=== PATIENT | female | born 1960 | race Caucasian/White ===

== ENCOUNTER 2019-11-12 08:13 | Outpatient (CLI) | payer OTHER, SELFPAY ==
[2019-11-12 08:58] LABS: Basophils # 0.1 10^3/uL (0.0-0.1); Basophils % 0.9 %; Eosinophils # 0.2 10^3/uL (0.0-0.8); Eosinophils % 1.6 %; Hematocrit 44.5 % (37.0-47.0); Hemoglobin 13.8 g/dL (11.5-15.3); Lymphocytes # 1.2 10^3/uL (0.8-4.8); Lymphocytes % 11.3 %; Mean Corpuscular Hemoglobin 25.2 pg (28.0-34.0); Mean Corpuscular Volume 81.4 fL (81-99); Mean Platelet Volume 8.1 fL (7.4-10.4); Monocytes # 1.1 10^3/uL (0.2-0.9); Monocytes % 10.7 %; Neutrophils # 7.9 10^3/uL (1.8-7.7); Neutrophils % 74.9 %; Nucleated Red Blood Cells % 0 %; Platelet Count 501 10^3/cmm (130-400); Red Blood Count 5.47 10^6/uL (4.1-5.3); Red Cell Distribution Width 15.8 % (12.1-15.1); White Blood Count 10.6 10^3/uL (4.0-10.0)
[2019-11-12 09:19] LABS: Ferritin 103 ng/mL (15-150); Iron 35 ug/dL (37-145); Percent Saturation 14.5 % (20-50); Total Iron Binding Capacity 240 mcg/dl; Unsaturated Iron Binding 205 ug/dL (112-347)
--- NOTE | 2019-11-12 13:34 | ONC FU_ITS ---
Dr. Gerardo follow up note Patient: Jolene Sandra Unit #: [id number]: 1960 Dicatated By: Aurora Gerardo M.D.Date of Visit:Nov 12, 2019 Onc Med Follow-up/Prog Note History of Present Illness: Mrs. Jolene Sandra, is a 58-year-old female with a history of generalized weakness and fatigue , labs done on 08/12/2019 showed white blood count 9.9 hemoglobin 12.8 crit 41.7 and MCV 75.7 platelets 722,000 with a normal differential. As per patient in the past she was told about elevated blood cells but not sure which one was. Denies any headaches blurred vision double vision denies any abdominal fullness. As per patient She has history CVA involving the right side now resolved but not mentioned in the medical record She is a chronic smoker and still smoke about a pack a day and has history of hypoxemic respiratory failure. Patient denies any night sweats, weight loss, no recurrent fever or peripheral lymphadenopathy Came for follow-up, denies any specific complaints, no nausea vomiting diarrhea no fever no chills no melena hematochezia, no hemoptysis or hematemesis no jaundice, no shortness of breath or palpitation. Medications: Aspirin 1 Tablet (of 81 mg) Oral daily, Ferrous Sulfate 1 Tablet (of 325 (65 fe) mg) Oral daily, Mirtazapine 1 Tablet (of 45 mg) Oral at bedtime, Multivitamin Adult 1 Tablet Tablet, chewable Oral daily, Trelegy Ellipta 1 Puff(s) (of 100-62.5-25 mcg/inh) Aerosol Powder, Breath Activated Inhalation daily Allergies: Penicillins Review of Systems: Constitutional - Appetite is good and weight is stable. No fever, chills, hot flashes, or night sweats. Energy level is poor, ENMT - No sinus congestion/drainage. No mouth sores. No sore throat or difficulty swallowing, Hematologic/Lymphatic - Positive for easy bruising, Respiratory - Negative for shortness of breath, Positive for cough. No pleuritic pain or hemoptysis, Cardiovascular - No angina pain. No palpitations, Gastrointestinal - No nausea or vomiting. Positive for heartburn, no acid reflux. No diarrhea or constipation. No blood in the stool or black stools, Genitourinary (F) - No dysuria or hematuria. No urinary frequency. No urgency or incontinence, Musculoskeletal - Positive for joint pain, Neurologic - Pt reports hx of stroke and residual numbness, Psychiatric - Positive for anxiety and depression, Pt is not currently being treated. Vital Signs: Performed on Nov 12, 2019 13:17 Height - 62.00 in Weight - 86.4 lbs (HIGH) BSA - 1.34 sq.m BMI - 15.80 (LOW) Temperature - 97.9 F (LOW) Pulse - 93 /min Respiration - 20 /min BP - 146/83 mm(hg) (HIGH) O2 Sat - 97 % Pain - 5 Performance Status: 0 - Fully active, able to carry on all predisease activities without restrictions. (ECOG) Physical Examination: ENMT - No oral exudates, ulcers, masses, thrush or mucositis. Oropharynx clear. Tongue normal, Respiratory - Lungs are clear to auscultation without rhonchi or wheezing, Cardiovascular - Regular rate and rhythm of heart, Abdomen - Non-tender, non-distended, Good bowel sounds. No guarding or rebound tenderness. No pulsatile masses, Extremities - no edema. Lab/Imaging: Test performed on Sep 17, 2019 11:02 WBC 13.7 10 3/uL RBC 5.47 10 6/uL HGB 13.2 g/dL HCT 42.9 % MCV 78.4 fl MCH 24.1 pg MCHC 30.8 g/dl RDW 16.0 % Platelet Count 570 10 3/cmm MPV 7.9 fl Neutrophils 11.5 10 3/uL Lymphocytes 0.8 10 3/uL Monocytes 1.2 10 3/uL Eosinophils 0.1 10 3/uL Basophils 0.1 10 3/uL Neutrophil % 83.6 % Lymphocyte % 6.0 % Monocyte % 8.4 % Eosinophil % 0.7 % Basophils % 0.8 % Test performed on Aug 20, 2019 08:49 Ferritin 139.0 ng/ml Folate, Serum 5.1 ng/mL Iron 21 ug/dL Vitamin B12 384 pg/mL % Iron Saturation 8.1 % UIBC 238 ug/dL ESR (Sed Rate) 54 mm/hr Impression: Isolated mild thrombocytosis, etiology unclear could be due to iron deficiency or chronic inflammation versus myeloproliferative disorder but less likely Plan: Discussed with patient regarding her labs white blood count 10.6 hemoglobin 13.8 crit 44.5 platelets 501,000 , ferritin 103 iron 35 TIBC 240 Clinically, patient is doing well with no new signs symptoms. Follow-up lab shows normal hemoglobin and mild but improving isolated thrombocytosis. Patient was recommended to get GI evaluation done but patient is declining, knowing the risk versus benefit. Return to clinic in 3 months with CBC and iron studies Signed By: Aurora Gerardo M.D. <<Signature on File>>
== END 2019-11-12 08:14 | disposition home or self-care (01) ==
LOC: ONCMED 08:18
PROVIDERS: Family Provider Internal Medicine; PCP Internal Medicine; Visit Provider Internal Medicine Hematology & Oncology
DX: D47.3 Essential (hemorrhagic) thrombocythemia (principal); F17.210 Nicotine dependence, cigarettes, uncomplicated; Z79.82 Long term (current) use of aspirin; Z86.73 Personal history of transient ischemic attack (TIA), and cerebral infarction without residual deficits
CPT/HCPCS: 82728; 83540; 83550; 85025; G0463

== ENCOUNTER 2021-07-04 10:51 | Outpatient (CLI) | payer SELFPAY ==
--- NOTE | 2021-07-04 10:57 | CT_ITS ---
WS: [id number] CT scan of the chest without IV contrast, additional two-dimensional coronal and sagittal reconstruct ion was performed. 07/04/2021 Clinical Data: PULMONARY NODULE Comparison: PA and lateral chest, 06/21/2021. DLP: 419.[address] scans at [facility] use at least one of these dose optimization techniques: automated e xposure control; mA and/or kV adjustment per patient size (includes targeted exams where dose is matc hed to clinical indication); or iterative reconstruction. Findings: There is a pleural-based density in the lingula of the left upper lobe seen best on axial image 19 of 62 measuring 2.2 cm with irregular borders. This is suspicious for a cancer of the lung. There are b ilateral upper lobe cavities with an air-fluid level on the right. The right cavity is larger than th e left. There are interstitial changes throughout both lungs especially adjacent to the cavitary lesi ons. The heart size is normal with no pericardial effusion. There is coronary artery calcification. T he pulmonary arterial system and thoracic aorta demonstrate no abnormalities or dilatations. There is no axillary adenopathy. Bilateral hilar adenopathy is prominent. The trachea bifurcates normally int o the bronchi. The upper abdomen shows a low density lesion in the anterior aspect of the right lobe of liver measur ing 1.5 cm which may represent a cyst rather than a metastatic lesion. There is a fusion of the T3-4 disc interspace with a flexion deformity. CT/CT chest wo con [id number] Impression: 1. Pleural-based density in lingula of the left upper lobe on image 19 of 22 yanez spicious for cancer of the lung, recommend clinical follow-up and CT chest fol low-up in 1-2 months. 2. Extensive upper lobe cavitary changes possibly from chronic infectious disea se. 3. Diffuse changes of COPD.
== END 2021-07-04 10:52 | disposition home or self-care (01) ==
LOC: RADWPI 10:55
PROVIDERS: PCP Internal Medicine; Visit Provider Internal Medicine
DX: R91.1 Solitary pulmonary nodule (principal)
CPT/HCPCS: 71250

== ENCOUNTER 2021-08-29 13:41 | Outpatient (CLI) | payer SELFPAY ==
--- NOTE | 2021-08-29 13:45 | XR_ITS ---
WS: [id number] DEXA (DUAL ENERGY X-RAY ABSORPTIOMETRY) Bone mineral density was performed using a [employer] machine. HISTORY: POSTMENOPAUSAL COMPARISON: None available. Lumbar spine BMD (L1-L4): 0.626 g/cm2 T score: -4.6 Z score: -2.4 Total hip BMD: Left: 0.425 g/cm2. T score: -4.6 Z score: -3.0 Right: 0.466 g/cm2. T score: -4.3 Z score: -2.7 10 year probability of a major osteoporotic fracture is 37%. XR/XR DEXA axial skeleton* [id number] IMPRESSION: OSTEOPOROSIS based upon the WHO classification for females.
== END 2021-08-29 13:42 | disposition home or self-care (01) ==
PROVIDERS: PCP Internal Medicine; Visit Provider Internal Medicine
DX: Z78.0 Asymptomatic menopausal state (principal); M81.0 Age-related osteoporosis without current pathological fracture
CPT/HCPCS: 77080

== ENCOUNTER → 2021-09-08 11:08 | Outpatient (BNVA) | payer OTHER, SELFPAY | PROVIDERS: PCP Internal Medicine; Visit Provider Internal Medicine Pulmonary Disease | DX: J43.9 Emphysema, unspecified (principal); Z20.822 Contact with and (suspected) exposure to COVID-19 | CPT/HCPCS: 87635 ==

== ENCOUNTER 2021-09-12 07:55 | Day surgery (SDC) | payer SELFPAY ==
[2021-09-12] VITALS (8 sets, daily range): BP systolic 114–186; BP diastolic 76–104; PULSE 98–118; RESP 16–22; TEMP 36.5–37.1; O2SAT 87–98
--- NOTE | 2021-09-12 08:16 | ANES.PREANE2 ---
Pre-Anesthetic Assessment Pre-Anesthetic Assessment: Height/Weight: Height 1.57 m Weight 33.566 kg Proposed Procedure: Operation Date: 09/12/21 09:25 Proposed Procedures p [facility] [id number] R91.8(Not Applicable) - Ruel Cobb MD Was Beta Kaite taken within 24 hours: N/A Was Clonidine taken within 24 hours: N/A Social: Social History: Tobacco and No alcohol Exam: Pre-Anes Outpt Exam: alert, oriented x 3 and regular rate & rhythm Additional Exam Findings (including area of procedure): decreased BS and rhonchi, tachy but regular Airway: Submandibular: WNL Cervical ROM: WNL MP: 2 Dentition: False Pulmonary: Pulmonary: COPD and TADEO CV/HEM: CV/HEM: HTN GI: GI: GERD Metabolic: Comments: Cachectic Neuropsych: Neuropsych: Anxiety, Depression and TIA Anesthetic Plan: ASA status: 3 Anesthesia: General Risk of > 500 ml blood loss (7ml/kg in children): No PFSH Anesthesia PFSH: Family History Mother Diabetes Cancer skin Hypertension Brother Cancer esophagus Sister Cancer pancreatic Data Anesthesia Cardiac Studies: No Data to Display
[2021-09-12] MEDS: sodium chloride 0.9% 1,000 ML 30 ML IV (09:15)
--- NOTE | 2021-09-12 10:20 | W.PM.OPSUD ---
Surgery/Procedure H&P Update DATE OF PROCEDURE: September 12, 2021\ Ms. Jolene Sandra is a 60-year-old female with PMH hypertension, CVA 2015, anxiety and depression, chronic hypoxic respiratory failure secondary to bullous emphysema, severely underweight with BMI 14, referred by Dr. Cheatham for new Dx lung nodule seen on 07/04 CT Chest. She was treated with doxycycline and 7 days of p.o. prednisone but still complaining of denies fever, chills, night sweats, hemoptysis, dysphagia, pain on inspiration, Reports hoarseness x 3 months or more, chest congestion, productive cough with clear to grimaldo sputum, pain with swallowing, SOB on exertion, feeling tired all of the time. Current cigarette smoker, currently smokes approx 15 cigarettes/ day with 1ppd x 42 year Hx, started at age 18. Using Trelegy inhaler, working well for her. Has tried Symbicort in past but did not help her, has not tried any other inhalers previously. Reports breathing unchanged since last visit, using Trelegy on occasion, less often than daily as she has to pay out of pocket and it costs her too much. PET/CT 09/05/2021: Multiple bilateral pulmonary nodules and FDG positive thick-walled blebs consistent with malignancy. The dominant nodule in central left lower lobe measures 2.9 x 1.9 cm with an SUV 12.8. Other blebs and masses have thick castaneda with abnormal activity indicating malignancy. The right and left hilum demonstrate abnormal activity likely malignant - Scheduled for EBUS guided FNA C of hilar mass. Today patient is here for EBUS guided FNA C of hilar mass. Complained of dyspnea on exertion. History and physical examination most recently on 09/08/2021 -Plan for bronchoscopy/EBUSGuided FNA C of left hilar mass DATE H&P PERFORMED: 09/08/21 PLANNED PROCEDURE: Operation Date: 09/12/21 09:25 Proposed Procedures p [facility] [id number] R91.8(Not Applicable) - Ruel Cobb MD Related Problem List Diagnoses (1) Encounter for smoking cessation counseling: (2) Chronic bullous emphysema: (3) Mass of left lung: (4) Cavitating mass in left lower lung lobe:
[2021-09-12] MEDS: lidocaine 1% INJ 20 mL XX (10:56)
--- NOTE | 2021-09-12 11:51 | P.OP_ITS ---
Operative Report Date of procedure: Date of procedure: Date of procedure: September 12, 2021 Pre-op Diagnosis: Lung cancer Post-op diagnosis: same Ms. Jolene Sandra is a 60-year-old female with PMH hypertension, CVA 2015, anxiety and depression, chronic hypoxic respiratory failure secondary to bullous emphysema, severely underweight with BMI 14, referred by Dr. Cheatham for new Dx lung nodule seen on 07/04 CT Chest. She was treated with doxycycline and 7 days of p.o. prednisone but still complaining of denies fever, chills, night sweats, hemoptysis, dysphagia, pain on inspiration, Reports hoarseness x 3 months or more, chest congestion, productive cough with clear to grimaldo sputum, pain with swallowing, SOB on exertion, feeling tired all of the time. Current cigarette smoker, currently smokes approx 15 cigarettes/ day with 1ppd x 42 year Hx, started at age 18. Using Trelegy inhaler, working well for her. Has tried Symbicort in past but did not help her, has not tried any other inhalers previously. Reports breathing unchanged since last visit, using Trelegy on occasion, less often than daily as she has to pay out of pocket and it costs her too much. PET/CT 09/05/2021: Multiple bilateral pulmonary nodules and FDG positive thick-walled blebs consistent with malignancy. The dominant nodule in central left lower lobe measures 2.9 x 1.9 cm with an SUV 12.8. Other blebs and masses have thick castaneda with abnormal activity indicating malignancy. The right and left hilum demonstrate abnormal activity likely malignant - Scheduled for EBUS guided FNA C of hilar masses. Procedure: Name of the procedure: Bronchoscopy with inspection of the airway, bronchoalveolar lavage, endobronchial ultrasound-guided fine needle aspiration of left and right hilar mass and control of bleeding. Indication: Suspected lung cancer Anesthesia: General anesthesia. Local anesthesia: The lorne in the right and left mainstem bronchi were anesthetized with 1% lidocaine, 3 mL. Description of the procedure: The procedure was explained to the patient and the consent was obtained. The patient was brought to the OR. The patient underwent LMA placement for general anesthesia. Following induction of general anesthesia, the bronchoscope was advanced through the LMA. The lower trachea appeared to be normal. the lorne was sharp. The lorne, the right and left mainstem bronchi are anesthetized with 1% lidocaine. In a systematic manner bilateral bronchial tree was then examined. The bronchoscope was advanced into the Right mainstem bronchus. The right upper lobe revealed erythematous mucosa with mild purulent secretions. Bronchoscope could not be advanced into the anterior segment of the right upper lobe. The right middle lobe and right lower lobe endobronchial mucosa appeared edematous. There are no endobronchial lesions. The bronchoscope was then introduced into the left mainstem bronchus. The left upper lobe, lingula and left lower lobe bronchi were examined up to the third subsegmental level and no abnormalities were identified. The endobronchial ultrasound was introduced through the LMA. Left hilar mass was too close to vasculature and so did not attempt FNA C. Then the EBUS was placed it 10 R and FNA C were taken from right hilar mass Bronchoalveolar lavage was performed from the right upper lobe and left lingula. 60 mL of saline was instilled in both places, fluid return was 20 mL. The fluid was bloody. Samples: 1. Bronchoalveolar lavage specimen from right upper lobe was sent for micro biology cultures, fungal cultures, AFB staining. 2. Bronchoalveolar lavage specimen from left lingula was sent for microbiology cultures, fungal cultures, AFB staining. 3. The transbronchial needle aspiration from right hilar mass are sent for histopathology in formalin. 4. Another sample of transbronchial needle aspiration from right hilar mass was sent to microbiology in normal saline for bacterial cultures, fungal and AFB cultures Complications: There was no immediate complications Associated Problem List Diagnoses (1) Cavitating mass in left lower lung lobe: (2) Mass of left lung: (3) Cavitating mass in right upper lung lobe: (4) Chronic bullous emphysema:
--- NOTE | 2021-09-12 11:52 | XR_ITS ---
WS: [id number] CHEST XRAY TECHNIQUE: Portable chest. CLINICAL INFORMATION: POST EBUS COMPARISON: June 21, 2021 FINDINGS: Heart: Normal cardiac silhouette. Lungs: Hyperinflation. Advanced chronic emphysematous changes. Bulla formation in the right greater t torres left lung apices unchanged from June 21, 2021. No evidence of pneumothorax. Stable prominent nipple shadows. Bones: Normal visualized bony structures. XR/XR chest 1V portable [id number] IMPRESSION: 1. No pneumothorax post bronchoscopy with biopsy 2. Hyperinflation with advanced emphysematous changes similar in appearance to previous. 3. Bilateral upper lobe cavitation similar in appearance to May 2021. Im provement of the right upper lobe air-fluid level. 4. No new findings.
--- NOTE | 2021-09-12 13:17 | ANE.PACU2 ---
Inpatient post-anesthesia follow up: Airway intact: Yes Vital signs: Temperature 98.8 F Pulse Rate 108 Respiratory Rate 22 Blood Pressure 142/77 Pulse Oximetry 95 Oxygen Delivery Me thod Nasal Cannula Oxygen Flow Rate 3 Fraction of Inspir ed Oxygen Nausea and vomiting: No Pain level: 2 Mental status: Baseline
== END 2021-09-12 13:45 | disposition home or self-care (01) ==
PROVIDERS: PCP Internal Medicine; Visit Provider Internal Medicine Pulmonary Disease
PROC: BB4BZZZ Ultrasonography of Pleura (ICD-10-PCS; principal; 2021-09-12 09:15)
PROC: 0BJ08ZZ Inspection of Tracheobronchial Tree, Via Natural or Artificial Opening Endoscopic (ICD-10-PCS; CPT 31622; 2021-09-12 09:15)
DX: R91.8 Other nonspecific abnormal finding of lung field (principal); I10 Essential (primary) hypertension; K21.9 Gastro-esophageal reflux disease without esophagitis; F41.9 Anxiety disorder, unspecified; F32.9 Major depressive disorder, single episode, unspecified; Z86.73 Personal history of transient ischemic attack (TIA), and cerebral infarction without residual deficits; Z83.3 Family history of diabetes mellitus; Z82.49 Family history of ischemic heart disease and other diseases of the circulatory system; J43.8 Other emphysema
CPT/HCPCS: 31624; 31652; 71045; 80500; 87015; 87070; 87102; 87116; 87205; 87206; 87801; 88305; J2704; J7030

== ENCOUNTER 2023-06-13 14:08 | Observation (INO) | payer MEDICAID, SELFPAY ==
[2023-06-13 14:10] VITALS: BP 117/70; PULSE 104; RESP 22; O2SAT 87
--- NOTE | 2023-06-13 14:19 | XR_ITS ---
WS: [id number] Exam: XR chest 1V portable [id number] Date/Time of Exam: 06/13/2023 2:21 PM Reason For Exam: weakness Comparison 09/12/2021. The lungs are fully expanded. Extensive changes of fibrosis and honeycombing noted. 2 very large bleb s occupy the RIGHT and LEFT upper lobes unchanged in appearance. There appears to be a possible new 3 x 2 cm soft tissue mass in the mid LEFT lung. Heart size is normal. The mediastinum is normal in con tour. There is hyperinflation. Bony structures are intact. IMPRESSION: 1. Possible new 3 x 2 cm soft tissue mass in the mid LEFT lung. 2. Extensive changes of fibrosis and honeycombing throughout both lungs with large blebs occupying th e RIGHT and LEFT upper lobes. These changes appear to be progressive since the prior study. Recommendations: Nonemergent CT scan of the chest with contrast should be considered for further eval uation.
--- NOTE | 2023-06-13 14:20 | ECG_ITS ---
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 Measurements Intervals [place] Rate: 95 P: 83 HI: 111 QRS: 85 QRSD: 84 T: 83 QT: 375 QTc: 473 Interpretive Statements SINUS RHYTHM WITH SHORT HI INTERVAL RIGHT ATRIAL ENLARGEMENT [0.3mV P-WAVE] LEFT ATRIAL ENLARGEMENT [-0.15mV P-WAVE IN V1/V2] ST DEVIATION AND MODERATE T-WAVE ABNORMALITY, CONSIDER ANTEROLATERAL ISCHEMIA [-0.1+ mV T-WAVE IN V3-V6] ST DEVIATION AND MODERATE T-WAVE ABNORMALITY, CONSIDER INFERIOR ISCHEMIA [-0.1+ mV T-WAVE IN II/aVF] No previous ECG available for comparison Electronically Signed On 06-13-2023 19:25:56 CDT by Tomi Acosta M.D. [id number]
--- NOTE | 2023-06-13 14:34 | CTR_ITS ---
PROCEDURE INFORMATION: Exam: CTA Chest With Contrast Exam date and time: 06/13/2023 3:36 PM Age: 62 years old Clinical indication: Dyspnea; Prior surgery; Surgery date: 6+ months; Patient HX: HX of lung cancer; Additional info: Mass/ dyspnea TECHNIQUE: Imaging protocol: Computed tomographic angiography of the chest with contrast. Exam focused on the arteries. 3D rendering (Not supervised by radiologist): MIP and/or 3D reconstructed images were created by the technologist. Radiation optimization: All CT scans at this facility use at least one of these dose optimization techniques: automated exposure control; mA and/or kV adjustment per patient size (includes targeted exams where dose is matched to clinical indication); or iterative reconstruction. Contrast material: OMNI 350; Contrast volume: 65 ml; Contrast route: INTRAVENOUS (IV); REPORTING DATA: Count of CT and Cardiac NM exams in prior 12 months: This patient has received 0 known CTs and 0 known cardiac nuclear medicine studies in the 12 months prior to the current study. COMPARISON: CT chest [facility] [id number] 07/04/2021 11:05 AM RADIATION DOSE METRICS: Total DLP (mGy-cm): 132.31 FINDINGS: Pulmonary arteries: Normal. No pulmonary emboli. Aorta: Unremarkable. No aortic aneurysm. No aortic dissection. Lungs: Severe bilateral emphysematous changes with large bilateral upper lobe bulla/cavitary areas, similar to prior exam. Patchy bibasilar airspace infiltrates new compared to prior exam, malignancy is not excluded. Pleural spaces: Unremarkable. No pneumothorax. No pleural effusion. Heart: Coronary artery atherosclerotic calcifications. Lymph nodes: Unremarkable. No enlarged lymph nodes. Liver: Left hepatic lobe 14 mm cyst similar to prior exam. Bones/joints: Left humeral head sclerotic bony lesion incompletely visualized may reflect a bone infarct. Soft tissues: Cholelithiasis suspected. CT/CT angio chest PE protcl [id number] IMPRESSION: 1. Negative for pulmonary embolus. 2. Severe bilateral emphysematous changes with large bilateral upper lobe bulla/cavitary areas, similar to prior exam. 3. Patchy bibasilar airspace infiltrates new compared to prior exam, malignancy is not excluded. 4. Left hepatic lobe 14 mm cyst similar to prior exam. 5. Left humeral head sclerotic bony lesion incompletely visualized may reflect a bone infarct. 6. Coronary artery atherosclerotic calcifications. 7. Cholelithiasis suspected. COMMENTS: In the absence of a history or active diagnosis of lung cancer, it is recommended that this patient with emphysema be evaluated for enrollment in a low dose CT lung cancer screening program.
--- NOTE | 2023-06-13 14:37 | ED_ITS ---
HPI - Weakness General: Chief complaint: Weakness Stated complaint: FAILURE TO THRIVE Time Seen by Provider: 06/13/23 14:20 Source: patient and EMS Mode of arrival: EMS Limitations: no limitations History of Present Illness: 62-year-old female who states that she has a long history of COPD she is on 3 L oxygen at baseline. Patient has a history of bullous emphysema she had a lung mass seen on the CT over a year ago she had seen her grocery supervisor back in September 2021 but states she has not seen anyone since then. Family states that she refuses to go to the hospital she has had increased weakness lethargy massive weight loss that has been ongoing. The day she did agree with family to come to the hospital she is extremely cachectic patient weighs 67 pounds here. She had no vomiting no diarrhea Associated symptoms: Denies chest pain, chills, dysuria, fever(s), headache(s), nausea or vomiting Review of Systems Const: Reports: fatigue and malaise; Denies: fever(s) or chills Eyes: Denies: blurry vision or eye discomfort ENMT: Denies: throat pain or dental pain Card: Denies: chest pain Resp: Reports: dyspnea GI: Denies: abdominal pain, nausea, vomiting or diarrhea : Denies: dysuria Musc: Denies: neck pain or back pain Skin/Breast: Denies: rash Neuro: Denies: headache(s) PFSH ED PFSH: Family History Mother Diabetes Cancer skin Hypertension Brother Cancer esophagus Sister Cancer pancreatic Physical Exam Const: COMMON NORMALS: patient oriented x3 GENERAL APPEARANCE: ill appearing and frail appearing NUTRITIONAL APPEARANCE: cachectic HENMT: COMMON NORMALS: normocephalic and atraumatic HEAD & SCALP: normocephalic and atraumatic Eye: COMMON NORMALS: conjunctivae normal CONJUNCTIVA: Yes conjunctivae normal Neck/C-Spine: COMMON NORMALS: full ROM and supple Chest: COMMONS NORMALS: normal inspection of the chest and normal palpation of entire chest wall Resp: COMMON NORMALS: No retractions and No use of accessory muscles AUSCULTATION: wheezes Cardio: COMMON NORMALS: regular rate, regular rhythm and No murmurs present (Cardio) RATE: regular rate RHYTHM: regular rhythm GI: COMMON NORMALS: Normal to inspection, nondistended, normoactive bowel sounds present, Soft to palpation, non-tender and no masses PALPATION: Yes Soft to palpation Extremity: COMMON NORMALS: normal to inspection and full ROM Neuro: COMMON NORMALS: patient oriented x3, moves all extremities and no focal motor deficits Psych: COMMON NORMALS: mental status grossly normal, Normal thought process present and cooperative THOUGHT PROCESS: Normal thought process present Skin: COMMON NORMALS: no rashes or lesions noted and no wounds GENERAL SKIN EXAM: no rashes or lesions noted Course Vital Signs: Vital signs: Vital Signs Pulse Rate 95 06/13/23 15:11 Respiratory Rate 16 06/13/23 15:11 Blood Pressure 128/77 06/13/23 15:11 Pulse Oximetry 95 06/13/23 15:11 Oxygen Delivery Me thod Room Air 06/13/23 15:11 Oxygen Flow Rate 3 06/13/23 14:10 MDM - Weakness Medical Decision Making Patient presents here with failure to thrive along with generalized weakness patient is extremely cachectic weigh [address] showed a possible lung mass she is a very heavy smoker spoke to her and her family at length she states that at this time she does not believe she wants any treatment she would like to be admitted as she is extremely weak and having failure to thrive but does not want treatment at this time and believes that she would likely be want to be placed on hospice or end-of-life care spoke to hospitalist will admit for observation at this time Medical Records I reviewed the patient's medical records. Lab Data I reviewed the patient's lab results. 06/13/23 14:51 06/13/23 14:51 Radiology Impressions Chest CTA 06/13/23 14:34 IMPRESSION: 1. Negative for pulmonary embolus. 2. Severe bilateral emphysematous changes with large bilateral upper lobe bulla/cavitary areas, similar to prior exam. 3. Patchy bibasilar airspace infiltrates new compared to prior exam, malignancy is not excluded. 4. Left hepatic lobe 14 mm cyst similar to prior exam. 5. Left humeral head sclerotic bony lesion incompletely visualized may reflect a bone infarct. 6. Coronary artery atherosclerotic calcifications. 7. Cholelithiasis suspected. COMMENTS: In the absence of a history or active diagnosis of lung cancer, it is recommended that this patient with emphysema be evaluated for enrollment in a low dose CT lung cancer screening program. Laboratory Results WBC 12.29 10^3/uL (3.29-11.43) H 06/13/23 14:51 RBC 4.67 10^6/uL (3.85-5.65) 06/13/23 14:51 Hgb 10.60 g/dL (11.27-16.99) L 06/13/23 14:51 Hct 38.3 % (36-47) 06/13/23 14:51 MCV 82.0 fl (85-98) L 06/13/23 14:51 MCH 22.7 pg (27-33) L 06/13/23 14:51 MCHC 27.7 g/dL (30-55) L 06/13/23 14:51 RDW 16.5 % (12.1-15.1) H 06/13/23 14:51 Plt Count 473 10^3/cmm (157-399) H 06/13/23 14:51 MPV 8.7 fL (7.4-10.4) 06/13/23 14:51 Neut % (Auto) 90.4 % 06/13/23 14:51 Lymph % (Auto) 2.8 % 06/13/23 14:51 [place] % (Auto) 5.7 % 06/13/23 14:51 Eos % (Auto) 0.1 % 06/13/23 14:51 Baso % (Auto) 0.5 % 06/13/23 14:51 Neut # (Auto) 11.11 10^3/uL (1.8-7.7) H 06/13/23 14:51 Lymph # (Auto) 0.4 10^3/uL (0.8-4.8) L 06/13/23 14:51 [place] # (Auto) 0.7 10^3/uL (0.2-0.9) 06/13/23 14:51 Eos # (Auto) 0.0 10^3/uL (0.0-0.8) 06/13/23 14:51 Baso # (Auto) 0.1 10^3/uL (0.0-0.1) 06/13/23 14:51 Nucleated RBC % (auto) 0 % 06/13/23 14:51 Nucleated RBCs # 0.0 /100WBC 06/13/23 14:51 Sodium 132 mmol/L (136-145) L 06/13/23 14:51 Potassium 3.8 mmol/L (3.5-5.1) 06/13/23 14:51 Chloride 93 mmol/L (98-107) L 06/13/23 14:51 Carbon Dioxide 29 mmol/L (22-29) 06/13/23 14:51 Anion Gap 13.8 (5-19) 06/13/23 14:51 BUN 16 mg/dL (8-23) 06/13/23 14:51 Creatinine 0.3 mg/dL (0.5-0.9) L 06/13/23 14:51 GFR Calculation 226.2 mL/min (90-130) H 06/13/23 14:51 Glucose 148 mg/dL (65-115) H 06/13/23 14:51 POC Glucose 77 mg/dL (70-110) 06/13/23 16:09 Calculated Osmolality 278 mOsm/kg (285-295) L 06/13/23 14:51 Calcium 8.9 mg/dL (8.5-10.5) 06/13/23 14:51 Total Bilirubin 0.3 mg/dL (0.15-1.2) 06/13/23 14:51 AST 5 U/L (0-32) 06/13/23 14:51 ALT < 5 U/L (0-33) 06/13/23 14:51 Alkaline Phosphatase 123 U/L (35-105) H 06/13/23 14:51 Total Protein 6.6 g/dL (6.6-8.7) 06/13/23 14:51 Albumin 2.7 g/dL (3.5-5.2) L 06/13/23 14:51 Globulin 3.9 g/dL (1.3-4.6) 06/13/23 14:51 Urine Color Yellow (Yellow) 06/13/23 15:29 Urine Appearance Cloudy (CLEAR) A 06/13/23 15:29 Urine pH 5 (5-7) 06/13/23 15:29 Ur Specific [place] 1.020 (1.005-1.030) 06/13/23 15:29 Urine Protein Neg (Negative) 06/13/23 15:29 Urine Glucose (UA) Norm (Normal) 06/13/23 15:29 Urine Ketones 1+ (Negative) H 06/13/23 15:29 Urine Blood Neg (Negative) 06/13/23 15: Urine Nitrate Negative (Negative) 06/13/23 15:29 Urine Bilirubin 1+ (Negative) H 06/13/23 15:29 Urine Urobilinogen 1 mg/dL (Negative) H 06/13/23 15:29 Ur Leukocyte Esterase Negative (Negative) 06/13/23 15:29 Urine RBC 0-4 /hpf (0-2) H 06/13/23 15:29 Urine WBC 0-4 /hpf (0-5) H 06/13/23 15:29 Ur Squamous Epith Cells 0-4 /hpf (0-5) H 06/13/23 15:29 Amorphous Sediment 4+ /hpf 06/13/23 15:29 Urine Bacteria None /hpf (NONE) 06/13/23 15:29 Discharge Plan Discharge Admit Provider: Yony Negrete Condition: Stable Coding Level of Care Code ED Portable Irrigation Operator for Chg Paulette
[2023-06-13 15:09] LABS: Basophils # 0.1 10^3/uL (0.0-0.1); Basophils % 0.5 %; Eosinophils % 0.1 %; Hematocrit 38.3 % (36-47); Lymphocytes # 0.4 10^3/uL (0.8-4.8); Lymphocytes % 2.8 %; Mean Corpuscular HGB Conc 27.7 g/dL (30-55); Mean Corpuscular Hemoglobin 22.7 pg (27-33); Mean Platelet Volume 8.7 fL (7.4-10.4); Monocytes # 0.7 10^3/uL (0.2-0.9); Monocytes % 5.7 %; Neutrophils # 11.11 10^3/uL (1.8-7.7); Neutrophils % 90.4 %; Nucleated Red Blood Cells % 0 %; Platelet Count 473 10^3/cmm (157-399); Red Blood Count 4.67 10^6/uL (3.85-5.65); Red Cell Distribution Width 16.5 % (12.1-15.1); White Blood Count 12.29 10^3/uL (3.29-11.43)
[2023-06-13] MEDS: sodium chloride 0.9% 1,000 ML 999 ML IV (15:09)
[2023-06-13 15:11] VITALS: BP 128/77; PULSE 95; RESP 16; O2SAT 95
[2023-06-13 15:27] LABS: Alanine Aminotransferase < 5 U/L (0-33); Albumin Level 2.7 g/dL (3.5-5.2); Alkaline Phosphatase 123 U/L (35-105); Anion Gap 13.8 (5-19); Aspartate Amino Transferase 5 U/L (0-32); Blood Urea Nitrogen 16 mg/dL (8-23); Calcium 8.9 mg/dL (8.5-10.5); Carbon Dioxide 29 mmol/L (22-29); Chloride 93 mmol/L (98-107); Globulin 3.9 g/dL (1.3-4.6); Glomerular Filtration Rate 226.2 mL/min (90-130); Glucose 148 mg/dL (65-115); Osmolality Calculated 278 mOsm/kg (285-295); Potassium 3.8 mmol/L (3.5-5.1); Sodium 132 mmol/L (136-145); Total Bilirubin 0.3 mg/dL (0.15-1.2); Total Protein 6.6 g/dL (6.6-8.7)
[2023-06-13] MEDS: iohexol 350 mg/mL 500 mL Btl (per mL) IV (15:40)
[2023-06-13 16:12] LABS: Glucose Point of Care 77 mg/dL (70-110)
[2023-06-13 16:21] LABS: Add Urine Microscopic? YES; Bilirubin Urine 1+ (Negative); Blood Urine Neg (Negative); Glucose Urine UA Norm (Normal); Ketones Urine 1+ (Negative); Leukocyte Esterase Urine Negative (Negative); Nitrate Urine Negative (Negative); Protein Urine Neg (Negative); Urine Appearance Cloudy (CLEAR); Urine Color Yellow (Yellow); Urobilinogen Urine 1 mg/dL (Negative); pH Urine 5 (5-7)
[2023-06-13 16:22] LABS: Amorphous Sediment Urine 4+ /hpf; RBC Urine 0-4 /hpf (0-2); Squamous Epithelial Cell Urine 0-4 /hpf (0-5); WBC Urine 0-4 /hpf (0-5)
[2023-06-13 16:23] LABS: Add Urine Culture? No
[2023-06-13 17:44] VITALS: PULSE 89; RESP 16; O2SAT 97
[2023-06-13] MEDS: ipratropium-albuterol 3 mL Neb INHALATION (17:45)
--- NOTE | 2023-06-13 18:05 | P.HP_ITS ---
Providers/Chief Complaint Admitting Physician: Yony Negrete Primary Care Provider: Jose Manuel Cheatham DO Chief Complaint: FAILURE TO THRIVE History of Present Illness Jolene Sandra is a 62 year old female with severe bullous emphysema, pulmonary malignancy noted on follow-up with pulmonology back in 2020, with cachexia, failure to thrive, has been progressively declining, but has not wanted to come to the hospital, was finally convinced by her family to come in. In ER initial assessment chest x-ray with suspected mass, CTA obtained, no PE, severe bilateral emphysema, bilateral upper lobe bulla/cavitary lesions. Patchy bibasilar airspace infiltrates, malignancy not excluded. Left hepatic lobe cyst similar to prior, left humeral head sclerotic bone lesion incompletely visualized may reflect a bony infarct. Other incidental findings. She has not been able to take care of herself, and has also not been having any appetite despite even trying to get her to drink some protein shakes. He had a fall with injury with scrapes and bruising of the left arm, and has been having pain in the left arm since. She no longer smokes. At home she has oxygen and uses an inhaler. Review of Systems Const: Reports: change in appetite and fatigue; Denies: fever(s), chills, body aches or malaise ENMT: Denies: throat pain Card: Denies: chest pain, edema, pre-syncope or dyspnea on exertion Resp: Reports: dyspnea; Denies: change in phlegm color or hemoptysis GI: Denies: abdominal pain, nausea or vomiting : Denies: flank pain, urinary frequency or hematuria Musc: Reports: extremity pain; Denies: back pain, joint swelling or joint redness Skin/Breast: Denies: rash or new lesions Neuro: Denies: headache(s), numbness in extremities, weakness in extremities, dizziness, confusion or seizure-like activity Medications/Allergies Home Medications Medication Instructions Recorded Confirmed Last Taken Type aspirin 81 mg chewable tablet 81 mg PO DAILY 07/24/21 06/13/23 09/11/21 History fluticasone fur. 100 mcg-umeclid 1 inh inhalation DAILY 07/24/21 06/13/23 1 Week Ago History 62.5 mcg-vilant 25 mcg ~09/05/21 inhalat.powder (Trelegy Ellipta) Allergies Allergy/AdvReac Type Severity Reaction Status Date / Time Penicillins Allergy Unknown Unknown Verified 06/13/23 14:40 PFSH Acute PFSH: Medical History (Updated 06/13/23 @ 18:15 by Yony Negrete MD) Cachexia Cavitating mass in left lower lung lobe Cavitating mass in right upper lung lobe Chronic bullous emphysema Mass of left lung Family History Mother Diabetes Cancer skin Hypertension Brother Cancer esophagus Sister Cancer pancreatic Social History (Updated 06/13/23 @ 18:12 by Yony Negrete MD) Smoking and tobacco status: former smoker Vitals/I&O/Wt Last Vital Signs Pulse 89 06/13/23 17:44 Resp 16 06/13/23 17:44 BP 128/77 06/13/23 15:11 Pulse Ox 97 06/13/23 17:44 O2 Del Method Nasal Cannula 06/13/23 17:44 O2 Flow Rate 4 06/13/23 17:44 Weight last 48 hrs Weight 30.844 kg Physical Exam Narrative: Accompanied by and friend. Const: COMMON NORMALS: patient oriented x3 and alert GENERAL APPEARANCE: cooperative NUTRITIONAL APPEARANCE: cachectic ORIENTATION/CONSCIOUSNESS: Yes awake HENMT: COMMON NORMALS: oropharynx normal Neck/C-Spine: COMMON NORMALS: no JVD Resp: COMMON NORMALS: normal respiratory effort and clear to auscultation bilaterally AUSCULTATION: diminished lung sounds Cardio: COMMON NORMALS: no JVD, regular rhythm, S1 normal heart sound present, S2 normal heart sound present and No murmurs present (Cardio) RHYTHM: regular rhythm HEART SOUNDS: S1 normal heart sound present and S2 normal heart sound present GI: COMMON NORMALS: Normal to inspection, nondistended, normoactive bowel sounds present, Soft to palpation and non-tender PALPATION: Yes Soft to palpation Extremity: COMMON NORMALS: no joint enlargement and no pedal edema OTHER: LUE antalgic position. Has hoodie on, cannot visualize elbow, reported bruising, scrapes after fall, no swelling, no shoulder swelling or erythema. Neuro: COMMON NORMALS: patient oriented x3 and moves all extremities SENSORIUM/ORIENTATION: Yes alert Skin: COMMON NORMALS: no rashes or lesions noted GENERAL SKIN EXAM: no rashes or lesions noted Data 06/13/23 14:51 06/13/23 14:51 A&P Assessment and plan (1) Goals of care, counseling/discussion: With failure to thrive, severe COPD, underlying malignancy, cachexia, as per discussion goals of care, patient and family are in consensus that she does not want medical treatment but would want to be set up for end-of-life care as may be possible given she does not have insurance. Would not want to go to [facility], would be taking care of her at home. At this time psychotherapist social worker not available. Requesting consultation. Otherwise decision for DNR. Hospice/comfort measures. (2) Failure to thrive: Discussed with them for now placed in observation until further arrangements can be made for hospice/comfort measures at home. In the meantime discussed with them and requested for no vitals or interruptions overnight. (3) Assessment of barriers to meet care plan goals performed: Self-pay. Case management consultation. (4) Chronic bullous emphysema: Breathing treatments. Oxygen support. Has oxygen at home. Morphine as needed for air hunger. Severe emphysema, goals of care be set up for hospice and/or equivalent care at home. Morphine, Ativan as needed for air hunger and/or anxiety, pain. (5) Cavitating mass in right upper lung lobe: (6) Cavitating mass in left lower lung lobe: (7) Cachexia: With cachexia, severe protein calorie malnutrition, BMI 12.4, sarcopenia, has not felt like eating anything. Regular diet as tolerating, add protein shakes if will feel like although provides story that she has not been eating even when he was been offering them at home. Plan Fall, left arm pain, abrasion, bruising: Requesting for a sling. Morphine as needed for pain. Lidocaine patch. CTA reviewed, noted also left humeral head sclerotic bony lesion may reflect bone infarct. Discussed with ER physician, ER documentation reviewed. Reviewed pulmonology documentation. Attestations Medical Necessity Statement*: Place in observation for additional goals of care determination, arrangements for hospice or equivalent care at home with severe emphysema, failure to thrive, underlying malignancy. Diagnoses Goals of care, counseling/discussion Z71.89 Failure to thrive Assessment of barriers to meet care plan goals performed Z04.89 Chronic bullous emphysema J43.9 Cavitating mass in right upper lung lobe J98.4 Cavitating mass in left lower lung lobe J98.4 Cachexia R64
[2023-06-13 19:08] VITALS: BP 121/68; PULSE 84; RESP 18; O2SAT 100
[2023-06-13 20:46] VITALS: BP 119/71; PULSE 89; RESP 18; TEMP 36.6; O2SAT 95
[2023-06-13] MEDS: lidocaine 5% Patch 1 PATCH TOPICAL (22:10)
[2023-06-13] MEDS: morphine 10 mg/0.5 mL oral liq UD 5 MG PO (22:24)
[2023-06-14] VITALS (15 sets, daily range): BP systolic 106–123; BP diastolic 55–75; PULSE 84–105; RESP 14–20; TEMP 36.4–37.4; O2SAT 86–99
[2023-06-14] MEDS: ipratropium-albuterol 3 mL Neb INHALATION ×4 (07:59→19:29)
[2023-06-14] MEDS: morphine 10 mg/0.5 mL oral liq UD 5 MG PO ×2 (08:58→11:54)
[2023-06-14] MEDS: lidocaine 5% Patch 1 PATCH TOPICAL (08:58)
--- NOTE | 2023-06-14 10:22 | PC.CHAP ---
Pastoral Care Encounter/Spiritual Assessment Type of Contact [] Declined global account executive visit [] Patient/Family/Request visit [] Outpatient visit [] Follow-up visit [] Physician referral [] Code/Alert [x] Routine visit [] Staff referral [] Actively dying [] Patient sleeping [x] Family support [] [] Out of room [] Palliative care [] [] Receiving care in room [] Pre-surgical visit [] Trauma [] Long length of stay [] ICU visit [] Other: Relational/Emotional Strength [x] Patient feels connected with others/family/visitors/staff [] Distress [] Loneliness/isolation [] Abandonment Spirituality of Patient [x] Person of Reina [x] Attends Roman Catholic of their [place] [x] Believes in Prayer [] Reads Bible or Baptism materials [] There are Spiritual issues to be addressed Pet Training Instructor Interventions [x] Prayer [x] Active listening [] Non-anxious presence [x] Spiritual/emotional support [] Crisis/trauma care [] Spiritual counseling [] Bereavement support [] Provided bereavement packet [] Provided Bible/devotional materials [] Provided toy/stuffed animal, coloring book to patient or family member [] Provided Communion [] Anointing/[place] [] Salvation [x] Completed spiritual assessment [] Other: Impact on Illness or Injury [] Angry [] Fearful [] Anxious [] Often cries [] Exhaustion [] Unable to work [] Unable to attend jewish [] Unable to walk/stand [] Unable to read [] Unable to drive [] Unable to eat/drink [] Unable to sleep [] Unable to be with family [] Patient intubated [] Other: Summary Time spent with patient 5 min
[2023-06-14 11:09] LABS: Glucose Point of Care 174 mg/dL (70-110)
--- NOTE | 2023-06-14 18:38 | P.PN_ITS ---
Subjective Subjective: Having pain in her left arm. Sling and lidocaine patch have been applied. Received morphine. Vitals/I&O/Wt Last Vital Signs Temp 98.2 F 06/14/23 15:19 Pulse 91 06/14/23 15:35 Resp 18 06/14/23 15:28 BP 122/72 06/14/23 15:19 Pulse Ox 95 06/14/23 15:28 O2 Del Method Nasal Cannula 06/14/23 15:28 O2 Flow Rate 3 06/14/23 15:28 06/14/23 06/14/23 06/14/23 06:59 14:59 22:59 Intake Total 480 / 480 480 / 960 Balance 480 / 480 480 / 960 Weight last 48 hrs Weight 32.829 kg Weight 30.844 kg Physical Exam Narrative: Accompanied by friend Monique, another person, and comes in later. Const: COMMON NORMALS: patient oriented x3 and alert GENERAL APPEARANCE: cooperative NUTRITIONAL APPEARANCE: cachectic ORIENTATION/CONSCIOUSNESS: Yes awake HENMT: COMMON NORMALS: oropharynx normal Neck/C-Spine: COMMON NORMALS: no JVD Resp: COMMON NORMALS: normal respiratory effort and clear to auscultation bilaterally AUSCULTATION: clear to auscultation bilaterally and diminished lung sounds Cardio: COMMON NORMALS: no JVD, regular rhythm, S1 normal heart sound present, S2 normal heart sound present and No murmurs present (Cardio) RHYTHM: regular rhythm HEART SOUNDS: S1 normal heart sound present and S2 normal heart sound present GI: COMMON NORMALS: Normal to inspection, nondistended, normoactive bowel sounds present, Soft to palpation and non-tender PALPATION: Yes Soft to palpation Extremity: COMMON NORMALS: no joint enlargement and no pedal edema OTHER: LUE in sling. Neuro: COMMON NORMALS: patient oriented x3 and moves all extremities SENSORIUM/ORIENTATION: Yes alert Skin: COMMON NORMALS: no rashes or lesions noted GENERAL SKIN EXAM: no carolyn hes or lesions noted Data 06/13/23 14:51 06/13/23 14:51 A&P Assessment and plan (1) Chronic bullous emphysema: Continue breathing treatments. Oxygen support. Morphine as needed for air hunger. Severe emphysema, goals of care be set up for hospice and/or equivalent care at home. Morphine, Ativan as needed for air hunger and/or anxiety, pain. Continue post discharge planning and arrangements. (2) Goals of care, counseling/discussion: Discussed with case management in rounds. Case management looking into possible option for hospice support for her which is difficult due to her being self-pay. Continue supportive care at this time, continue arrangements. With failure to thrive, severe COPD, underlying malignancy, cachexia, as per discussion goals of care, patient and family are in consensus that she does not want medical treatment but would want to be set up for end-of-life care as may be possible given she does not have insurance. Would not want to go to longterm. (3) Failure to thrive: Discussed with them for now placed in observation until further arrangements can be made for hospice/comfort measures at home. In the meantime discussed with them and requested for no vitals or interruptions overnight. (4) Assessment of barriers to meet care plan goals performed: Self-pay. Case management consultation. (5) Cavitating mass in right upper lung lobe: (6) Cavitating mass in left lower lung lobe: (7) Cachexia: With cachexia, severe protein calorie malnutrition, BMI 12.4, sarcopenia, has not felt like eating anything. Regular diet as tolerating, add protein shakes if will feel like although provides story that she has not been eating even when he was been offering them at home. Plan Fall, left arm pain, abrasion, bruising: Sling applied. Lidocaine patch applied. Received morphine, still having pain. Increase morphine frequency. Continue to adjust. CTA reviewed, noted also left humeral head sclerotic bony lesion may reflect bone infarct. Discussed with case management. Attestations Medical Necessity Statement*: Continue hospitalization for supportive measures with advanced COPD, failure to thrive, optimization of pain control, post discharge planning and arrangements with difficult social situation and barriers to care. Diagnoses Chronic bullous emphysema J43.9 Goals of care, counseling/discussion Z71.89 Failure to thrive Assessment of barriers to meet care plan goals performed Z04.89 Cavitating mass in right upper lung lobe J98.4 Cavitating mass in left lower lung lobe J98.4 Cachexia R64
--- NOTE | 2023-06-14 19:11 | PC.NURSE ---
[facility] called back and accepts self pay patients for a billed daily rate. They can accept the patient and I faxed the facesheet and H&P per electron gun assembler nurse's request to [phone]. Will work on it more tomorrow and they will call tomorrow with an update.
[2023-06-15] VITALS (11 sets, daily range): BP systolic 103–143; BP diastolic 54–75; PULSE 83–107; RESP 15–19; TEMP 36.3–36.9; O2SAT 87–97
[2023-06-15] MEDS: morphine 10 mg/0.5 mL oral liq UD 5 MG PO ×5 (03:14→16:14)
[2023-06-15] MEDS: ipratropium-albuterol 3 mL Neb INHALATION ×4 (07:27→20:14)
[2023-06-15] MEDS: aspirin 81 mg Chew Tablet PO (08:36)
[2023-06-15] MEDS: lidocaine 5% Patch 1 PATCH TOPICAL (08:36)
[2023-06-15] MEDS: LORazepam 0.5 mg Tablet 0.25 MG PO (11:23)
[2023-06-15] MEDS: LORazepam 2 mg/mL INJ 1 mL 0.5 MG IVP (16:21)
--- NOTE | 2023-06-15 18:39 | P.PN_ITS ---
Subjective Subjective: Pain in her arm is slightly better, but still there. He is getting better relief with lidocaine patch as well as every 2 hour morphine. Wears sling as needed. Discussed with her consideration of x-ray to assess for possible fracture which she initially considered, but later declines. Vitals/I&O/Wt Last Vital Signs Temp 97.4 F L 06/15/23 15:25 Pulse 89 06/15/23 15:25 Resp 16 06/15/23 15:25 BP 108/54 06/15/23 15:25 Pulse Ox 87 L 06/15/23 15:25 O2 Del Method Simple Mask 06/15/23 15:25 O2 Flow Rate 3 06/15/23 15:15 06/15/23 06/15/23 06/15/23 06:59 14:59 22:59 Intake Total 480 / 480 240 / 720 Balance 480 / 480 240 / 720 Weight last 48 hrs Weight 32.914 kg Weight 32.829 kg Physical Exam Narrative: Accompanied by friends and . Const: COMMON NORMALS: patient oriented x3 and alert GENERAL APPEARANCE: cooperative NUTRITIONAL APPEARANCE: cachectic ORIENTATION/CONSCIOUSNESS: Yes awake HENMT: COMMON NORMALS: oropharynx normal Neck/C-Spine: COMMON NORMALS: no JVD Resp: COMMON NORMALS: normal respiratory effort and clear to auscultation bilaterally AUSCULTATION: clear to auscultation bilaterally and diminished lung sounds Cardio: COMMON NORMALS: no JVD, regular rhythm, S1 normal heart sound present, S2 normal heart sound present and No murmurs present (Cardio) RHYTHM: regular rhythm HEART SOUNDS: S1 normal heart sound present and S2 normal heart sound present GI: COMMON NORMALS: Normal to inspection, nondistended, normoactive bowel sounds present, Soft to palpation and non-tender PALPATION: Yes Soft to palpation Extremity: COMMON NORMALS: no joint enlargement and no pedal edema OTHER: LUE in sling. Neuro: COMMON NORMALS: patient oriented x3 and moves all extremities SENSORIUM/ORIENTATION: Yes alert Skin: COMMON NORMALS: no rashes or lesions noted GENERAL SKIN EXAM: no rashes or lesions noted Data 06/13/23 14:51 06/13/23 14:51 A&P Assessment and plan (1) Chronic bullous emphysema: Continue breathing treatments. Oxygen support. Morphine as needed for air hunger, increased to every 2 hours. Added Ativan IV for anxiety. She declines p.o. Continue management for hospice care, discussed with case management, arrangements for her to return to stay with her brother with hospice after discharge. Severe emphysema, goals of care be set up for hospice and/or equivalent care at home. Morphine, Ativan as needed for air hunger and/or anxiety, pain. (2) Goals of care, counseling/discussion: Discussed with case management in rounds. Case management looking into possible option for hospice support for her which is difficult due to her being self-pay. Continue supportive care at this time, continue arrangements. With failure to thrive, severe COPD, underlying malignancy, cachexia, as per discussion goals of care, patient and family are in consensus that she does not want medical treatment but would want to be set up for end-of-life care as may be possible given she does not have insurance. Would not want to go to assisted. (3) Failure to thrive: Discussed with them for now placed in observation until further arrangements can be made for hospice/comfort measures at home. In the meantime discussed with them and requested for no vitals or interruptions overnight. (4) Assessment of barriers to meet care plan goals performed: Self-pay. Case management consultation. (5) Cavitating mass in right upper lung lobe: (6) Cavitating mass in left lower lung lobe: (7) Cachexia: With cachexia, severe protein calorie malnutrition, BMI 12.4, sarcopenia, has not felt like eating anything. Regular diet as tolerating, add protein shakes if will feel like although provides story that she has not been eating even when he was been offering them at home. Plan Fall, left arm pain, abrasion, bruising: Discussed consideration of x-ray to confirm a fracture, she initially considered but later declined. Sling as needed. Lidocaine patch applied. Received morphine, still having pain. Increase morphine frequency. Continue to adjust. CTA reviewed, noted also left humeral head sclerotic bony lesion may reflect bone infarct. Discussed with case management. Attestations Medical Necessity Statement*: Continue hospitalization for supportive measures with advanced COPD, failure to thrive, optimization of pain control, post discharge planning and arrangements with difficult social situation and barriers to care. and High MDM includes described risk of complication, morbidity or mortality of management as documented Diagnoses Chronic bullous emphysema J43.9 Goals of care, counseling/discussion Z71.89 Failure to thrive Assessment of barriers to meet care plan goals performed Z04.89 Cavitating mass in right upper lung lobe J98.4 Cavitating mass in left lower lung lobe J98.4 Cachexia R64
[2023-06-16 03:50] VITALS: BP 114/78; PULSE 95; RESP 19; TEMP 36.4; O2SAT 96
[2023-06-16 07:09] VITALS: BP 124/83; PULSE 96; RESP 16; TEMP 36.4; O2SAT 93
[2023-06-16 08:00] VITALS: PULSE 87; RESP 16; O2SAT 92
[2023-06-16] MEDS: ipratropium-albuterol 3 mL Neb INHALATION (08:02)
[2023-06-16 08:06] VITALS: PULSE 94
[2023-06-16] MEDS: morphine 10 mg/0.5 mL oral liq UD 5 MG PO (08:54)
[2023-06-16] MEDS: LORazepam 2 mg/mL INJ 1 mL 0.5 MG IVP (09:00)
[2023-06-16 09:24] VITALS: PULSE 94
--- NOTE | 2023-06-27 14:18 | PM.DCS ---
Discharge Providers Date of Admission: 06/13/23 17:15 Date of Discharge: June 27, 2023 Attending Provider at Admission: Yony Negrete Attending Provider at Discharge: Yony Negrete Primary Care Provider: Jose Manuel Cheatham, Diagnoses at Discharge Discharge Diagnosis (1) Chronic bullous emphysema: Status: Acute (2) Goals of care, counseling/discussion: Status: Acute (3) Failure to thrive: Status: Acute (4) Assessment of barriers to meet care plan goals performed: Status: Acute (5) Cavitating mass in right upper lung lobe: Status: Acute (6) Cavitating mass in left lower lung lobe: Status: Acute (7) Cachexia: Status: Acute Reason for Visit Reason for Visit: FAILURE TO THRIVE Brief History: Jolene Sandra is a 62 year old female with severe bullous emphysema, pulmonary malignancy noted on follow-up with pulmonology back in 2020, with cachexia, failure to thrive, has been progressively declining, but has not wanted to come to the hospital, was finally convinced by her family to come in.? In ER initial assessment chest x-ray with suspected mass, CTA obtained, no PE, severe bilateral emphysema, bilateral upper lobe bulla/cavitary lesions.? Patchy bibasilar airspace infiltrates, malignancy not excluded.? Left hepatic lobe cyst similar to prior, left humeral head sclerotic bone lesion incompletely visualized may reflect a bony infarct.? Other incidental findings. She has not been able to take care of herself, and has also not been having any appetite despite even trying to get her to drink some protein shakes. He had a fall with injury with scrapes and bruising of the left arm, and has been having pain in the left arm since. She no longer smokes. At home she has oxygen and uses an inhaler. Hospital Course Hospital Course Case management consultation was obtained, hospice services were sought. She was started on medications to help with air hunger, anxiety, continue with breathing treatments. Pain control due to pain in her left arm after the fall. Declined additional imaging. Was set up with a sling. Nutrition encouraged as tolerating, added nutritional supplements. As per her wishes hospice care arranged at her brother's home where she discharged to for continued hospice and comfort measures on [employer] sports [employer] of 06/16 once preparations were finalized. Physical Exam Narrative: She left early on 06/16 morning. Please see prior physical exam. Discharge Data Studies Completed and Pending Completed Studies During Hospitalization Category Date Time Status CTA chest [CT angio chest PE protcl [id number]] Stat Cat Scan 06/13/23 14:34 Completed XR chest 1V portable [id number] Stat Exams 06/13/23 14:19 Completed Radiology Impressions Chest CTA 06/13/23 14:34 IMPRESSION: 1. Negative for pulmonary embolus. 2. Severe bilateral emphysematous changes with large bilateral upper lobe bulla/cavitary areas, similar to prior exam. 3. Patchy bibasilar airspace infiltrates new compared to prior exam, malignancy is not excluded. 4. Left hepatic lobe 14 mm cyst similar to prior exam. 5. Left humeral head sclerotic bony lesion incompletely visualized may reflect a bone infarct. 6. Coronary artery atherosclerotic calcifications. 7. Cholelithiasis suspected. COMMENTS: In the absence of a history or active diagnosis of lung cancer, it is recommended that this patient with emphysema be evaluated for enrollment in a low dose CT lung cancer screening program. Laboratory Results WBC 12.29 10^3/uL (3.29-11.43) H 06/13/23 14:51 RBC 4.67 10^6/uL (3.85-5.65) 06/13/23 14:51 Hgb 10.60 g/dL (11.27-16.99) L 06/13/23 14:51 Hct 38.3 % (36-47) 06/13/23 14:51 MCV 82.0 fl (85-98) L 06/13/23 14:51 MCH 22.7 pg (27-33) L 06/13/23 14:51 MCHC 27.7 g/dL (30-55) L 06/13/23 14:51 RDW 16.5 % (12.1-15.1) H 06/13/23 14:51 Plt Count 473 10^3/cmm (157-399) H 06/13/23 14:51 MPV 8.7 fL (7.4-10.4) 06/13/23 14:51 Neut % (Auto) 90.4 % 06/13/23 14:51 Lymph % (Auto) 2.8 % 06/13/23 14:51 [place] % (Auto) 5.7 % 06/13/23 14:51 Eos % (Auto) 0.1 % 06/13/23 14:51 Baso % (Auto) 0.5 % 06/13/23 14:51 Neut # (Auto) 11.11 10^3/uL (1.8-7.7) H 06/13/23 14:51 Lymph # (Auto) 0.4 10^3/uL (0.8-4.8) L 06/13/23 14:51 Rush # (Auto) 0.7 10^3/uL (0.2-0.9) 06/13/23 14:51 Eos # (Auto) 0.0 10^3/uL (0.0-0.8) 06/13/23 14:51 Baso # (Auto) 0.1 10^3/uL (0.0-0.1) 06/13/23 14:51 Nucleated RBC % (auto) 0 % 06/13/23 14:51 Nucleated RBCs # 0.0 /100WBC 06/13/23 14:51 Sodium 132 mmol/L (136-145) L 06/13/23 14:51 Potassium 3.8 mmol/L (3.5-5.1) 06/13/23 14:51 Chloride 93 mmol/L (98-107) L 06/13/23 14:51 Carbon Dioxide 29 mmol/L (22-29) 06/13/23 14:51 Anion Gap 13.8 (5-19) 06/13/23 14:51 BUN 16 mg/dL (8-23) 06/13/23 14:51 Creatinine 0.3 mg/dL (0.5-0.9) L 06/13/23 14:51 GFR Calculation 226.2 mL/min (90-130) H 06/13/23 14:51 Glucose 148 mg/dL (65-115) H 06/13/23 14:51 POC Glucose 174 mg/dL (70-110) H 06/14/23 11:00 Calculated Osmolality 278 mOsm/kg (285-295) L 06/13/23 14:51 Calcium 8.9 mg/dL (8.5-10.5) 06/13/23 14:51 Total Bilirubin 0.3 mg/dL (0.15-1.2) 06/13/23 14:51 AST 5 U/L (0-32) 06/13/23 14:51 ALT < 5 U/L (0-33) 06/13/23 14:51 Alkaline Phosphatase 123 U/L (35-105) H 06/13/23 14:51 Total Protein 6.6 g/dL (6.6-8.7) 06/13/23 14:51 Albumin 2.7 g/dL (3.5-5.2) L 06/13/23 14:51 Globulin 3.9 g/dL (1.3-4.6) 06/13/23 14:51 Urine Color Yellow (Yellow) 06/13/23 15:29 Urine Appearance Cloudy (CLEAR) A 06/13/23 15:29 Urine pH 5 (5-7) 06/13/23 15:29 Ur Specific [place] 1.020 (1.005-1.030) 06/13/23 15:29 Urine Protein Neg (Negative) 06/13/23 15:29 Urine Glucose (UA) Norm (Normal) 06/13/23 15:29 Urine Ketones 1+ (Negative) H 06/13/23 15:29 Urine Blood Neg (Negative) 06/13/23 15:29 Urine Nitrate Negative (Negative) 06/13/23 15:29 Urine Bilirubin 1+ (Negative) H 06/13/23 15:29 Urine Urobilinogen 1 mg/dL (Negative) H 06/13/23 15:29 Ur Leukocyte Esterase Negative (Negative) 06/13/23 15:29 Urine RBC 0-4 /hpf (0-2) H 06/13/23 15:29 Urine WBC 0-4 /hpf (0-5) H 06/13/23 15:29 Ur Squamous Epith Cells 0-4 /hpf (0-5) H 06/13/23 15:29 Amorphous Sediment 4+ /hpf 06/13/23 15:29 Urine Bacteria None /hpf (NONE) 06/13/23 15:29 Vitals Last Vital Signs Temp 97.6 F 06/16/23 07:09 Pulse 94 06/16/23 09:24 Resp 16 06/16/23 08:00 BP 124/83 06/16/23 07:09 Pulse Ox 92 06/16/23 08:00 O2 Del Method Oxymask 06/16/23 08:00 O2 Flow Rate 3 06/16/23 08:00 Discharge Plan Discharge Patient Disposition: Hospice - Home Condition: Stable Prescriptions: New acetaminophen 325 mg Tablet 650 mg PO Q6H PRN (Reason: Mild/Mod Pain Or Temp >/= 101) Qty: 30 0RF bisacodyl 10 mg Suppository 10 mg AL ONCE PRN (Reason: Constipation (see protocol)) Qty: 30 0RF morphine concentrate 100 mg/5 mL (20 mg/mL) solution 5 mg PO Q3H PRN (Reason: dyspnea or pain) Qty: 30 0RF Ativan 0.5 mg tablet 0.5 mg PO Q6H PRN (Reason: anxiety) Qty: 20 0RF Continued aspirin 81 mg tablet,chewable 81 mg PO DAILY Trelegy Ellipta 100-62.5-25 mcg blister with device 1 inh inhalation DAILY Discharge Orders: Discharge Order (Routine); Ordered 06/16/23 Ordered By: Yony Negrete Referrals: [facility] [Other] ( ) Jose Manuel Cheatham DO [Primary Care Provider] - 1 week Discharge Diet: Advance as tolerated and Regular Discharge Activity: Oxygen as instructed Patient Instructions: Lorazepam (By mouth) (Ativan, Lorazepam Intensol, Loreev XR), Morphine, Rapid Release (By mouth) (Roxanol), Failure to Thrive (DC), Hospice Care (GEN) Activity Restrictions/Additional Instructions: Use sling as needed for left arm support. Discharge Attestations Time Spent in Discharge Care*: greater than 30 min Quality Metrics Clinical Quality Measures [ No reported AMI, CVA or VTE this stay] Coding Level of Care Code 68563 Total time (in minutes) for Discharge: 35 Diagnoses Chronic bullous emphysema J43.9 Goals of care, counseling/discussion Z71.89 Failure to thrive Assessment of barriers to meet care plan goals performed Z04.89 Cavitating mass in right upper lung lobe J98.4 Cavitating mass in left lower lung lobe J98.4 Cachexia R64
== END 2023-06-16 09:00 | disposition hospice, home (50) ==
LOC: ER 14:58 → MEDSURG 17:38
PROVIDERS: Admitting Provider Internal Medicine; Emergency Provider Emergency Medicine; PCP Internal Medicine; Visit Provider Internal Medicine
DX: J43.9 Emphysema, unspecified (principal); Z71.89 Other specified counseling; Z04.89 Encounter for examination and observation for other specified reasons; J98.4 Other disorders of lung; R64 Cachexia; Z79.82 Long term (current) use of aspirin; Z87.891 Personal history of nicotine dependence; Z99.81 Dependence on supplemental oxygen; I25.10 Atherosclerotic heart disease of native coronary artery without angina pectoris; R62.7 Adult failure to thrive
CPT/HCPCS: 36415; 36416; 71045; 71275; 80053; 81001; 82962; 85025; 93005; 94640; 94664; 96360; 99285; G0378; J2060; J7030; Q9967